=== PATIENT | male | born 1960 | race Caucasian/White ===

== ENCOUNTER 2019-03-31 23:58 | Inpatient (IN) | payer OTHER ==
[~2019-03-31] VITALS: Ht 149.9 cm; Wt 46.3 kg
[~2019-03-31 23:58] MED LIST: APAP/HYDROCODON1 T13 PO; FLO4 PO
[2019-04-01 01:07] LABS: BASOPHIL % 0.2 % (0-2); RED CELL DISTRIBUTION WIDTH 18.1 % (11.5-14.5)
[2019-04-01 01:16] LABS: CALCIUM 8.5 mg/dL (8.5-10.1); CARBON DIOXIDE 30.8 mmol/L (21-32); CHLORIDE SERUM 104 mmol/L (98-107); GFR1 > 60 mL/min; GLUCOSE SERUM 111 mg/dL (74-106); POTASSIUM SERUM 3.9 mmol/L (3.5-5.1); SODIUM SERUM 141 mmol/L (136-145)
[2019-04-01 01:19] LABS: PLATELET COUNT 44 x10^3mcL (130-400)
[2019-04-01 01:20] LABS: ALKALINE PHOSPHATASE 100 U/L (46-116); ALT/SGPT 36 U/L (16-63); AST/SGOT 43 U/L (15-37); BILIRUBIN TOTAL 0.99 mg/dL (0.20-1.00); LIPASE 343 IU/L (73-393); TOTAL PROTEIN, SERUM 7.7 g/dL (6.4-8.2)
[2019-04-01 01:24] LABS: ALBUMIN 2.9 g/dL (3.4-5.0)
[2019-04-01 02:20] LABS: UA SPECIFIC GRAVITY 1.025 (1.005-1.035); microscopic required? YES; urine erythrocyte 3+ (NEGATIVE)
[2019-04-01 04:26] LABS: CHOLESTEROL/HDL RATIO 2.4
[2019-04-01 05:17] VITALS: BP 146/75
[2019-04-01 07:13] LABS: CALCIUM 8.1 mg/dL (8.5-10.1); CARBON DIOXIDE 26.1 mmol/L (21-32); CHLORIDE SERUM 105 mmol/L (98-107); CREATININE SERUM 0.9 mg/dL (0.7-1.3); GFR1 > 60 mL/min; GLUCOSE SERUM 112 mg/dL (74-106); MAGNESIUM 1.7 mg/dL (1.8-2.4); PHOSPHOROUS 4.1 mg/dL (2.5-4.9); POTASSIUM SERUM 3.8 mmol/L (3.5-5.1); SODIUM SERUM 139 mmol/L (136-145)
[2019-04-01 08:09] LABS: BASOPHIL % 0.3 % (0-2)
[2019-04-01 08:11] LABS: RED CELL DISTRIBUTION WIDTH 17.8 % (11.5-14.5)
[2019-04-01 08:15] LABS: PLATELET COUNT 31 x10^3mcL (130-400)
[2019-04-01 09:08] VITALS: BP 129/68
[2019-04-01 11:50] VITALS: BP 134/62
[2019-04-01 16:21] VITALS: BP 113/68
[2019-04-01 21:10] VITALS: BP 121/65
[2019-04-02 05:53] VITALS: BP 104/58
[2019-04-02 06:46] LABS: BASOPHIL % 0.2 % (0-2)
[2019-04-02 07:28] LABS: ALKALINE PHOSPHATASE 67 U/L (46-116); ALT/SGPT 27 U/L (16-63); AST/SGOT 25 U/L (15-37); BILIRUBIN TOTAL 0.91 mg/dL (0.20-1.00); CALCIUM 7.8 mg/dL (8.5-10.1); CARBON DIOXIDE 22.7 mmol/L (21-32); CHLORIDE SERUM 104 mmol/L (98-107); CREATININE SERUM 0.9 mg/dL (0.7-1.3); GFR1 > 60 mL/min; GLUCOSE SERUM 115 mg/dL (74-106); MAGNESIUM 2.1 mg/dL (1.8-2.4); PHOSPHOROUS 3.7 mg/dL (2.5-4.9); POTASSIUM SERUM 4.2 mmol/L (3.5-5.1); SODIUM SERUM 135 mmol/L (136-145)
[2019-04-02 07:31] LABS: ALBUMIN 2.1 g/dL (3.4-5.0)
[2019-04-02 07:45] LABS: RED CELL DISTRIBUTION WIDTH 18.3 % (11.5-14.5)
[2019-04-02 08:44] VITALS: BP 146/73
[2019-04-02 10:07] LABS: PLATELET COUNT 21 x10^3mcL (130-400)
[2019-04-02 12:29] VITALS: BP 128/62
[2019-04-02 17:42] VITALS: BP 133/63
[2019-04-02 20:18] VITALS: BP 129/60
[2019-04-03 05:21] VITALS: BP 143/66
[2019-04-03 06:35] LABS: BASOPHIL % 0.2 % (0-2)
[2019-04-03 06:55] LABS: CALCIUM 7.7 mg/dL (8.5-10.1); CARBON DIOXIDE 23.9 mmol/L (21-32); CHLORIDE SERUM 104 mmol/L (98-107); CREATININE SERUM 0.7 mg/dL (0.7-1.3); GFR1 > 60 mL/min; GLUCOSE SERUM 80 mg/dL (74-106); MAGNESIUM 1.7 mg/dL (1.8-2.4); POTASSIUM SERUM 3.9 mmol/L (3.5-5.1); SODIUM SERUM 135 mmol/L (136-145)
[2019-04-03 08:36] VITALS: BP 125/99
[2019-04-03 09:01] LABS: RED CELL DISTRIBUTION WIDTH 18.6 % (11.5-14.5)
[2019-04-03 09:06] LABS: PLATELET COUNT 25 x10^3mcL (130-400)
[2019-04-03 11:47] VITALS: BP 120/87
[2019-04-03 16:30] VITALS: BP 150/85
[2019-04-03 19:12] VITALS: BP 135/67
[2019-04-04 05:12] VITALS: BP 122/69
[2019-04-04 06:02] LABS: CALCIUM 7.7 mg/dL (8.5-10.1); CARBON DIOXIDE 25.1 mmol/L (21-32); CHLORIDE SERUM 107 mmol/L (98-107); CREATININE SERUM 0.8 mg/dL (0.7-1.3); GFR1 > 60 mL/min; GLUCOSE SERUM 99 mg/dL (74-106); POTASSIUM SERUM 3.9 mmol/L (3.5-5.1); SODIUM SERUM 138 mmol/L (136-145)
[2019-04-04 06:12] LABS: BASOPHIL % 0.2 % (0-2)
[2019-04-04 08:09] VITALS: BP 151/81
[2019-04-04 08:44] LABS: RED CELL DISTRIBUTION WIDTH 18.2 % (11.5-14.5)
[2019-04-04 08:47] LABS: PLATELET COUNT 51 x10^3mcL (130-400)
[2019-04-04 12:12] VITALS: BP 151/73
[2019-04-04 16:25] VITALS: BP 139/76
[2019-04-04 20:55] VITALS: BP 145/69
[2019-04-05 05:57] VITALS: BP 138/76
[2019-04-05 07:32] LABS: RED CELL DISTRIBUTION WIDTH 18.6 % (11.5-14.5)
[2019-04-05 07:35] LABS: PLATELET COUNT 41 x10^3mcL (130-400)
[2019-04-05 08:20] LABS: MONOCYTE 10 % (0-7); SEGMENTED NEUTROPHILS 73 % (37-75); rbc morphology (normal/abnorm) ABNORMAL (NORMAL)
[2019-04-05 08:50] VITALS: BP 150/73
[2019-04-05 09:18] LABS: CALCIUM 7.8 mg/dL (8.5-10.1); CHLORIDE SERUM 106 mmol/L (98-107); CREATININE SERUM 0.7 mg/dL (0.7-1.3); GFR1 > 60 mL/min; GLUCOSE SERUM 87 mg/dL (74-106); POTASSIUM SERUM 4.1 mmol/L (3.5-5.1); SODIUM SERUM 138 mmol/L (136-145)
[2019-04-05 12:51] VITALS: BP 115/90
[2019-04-05 16:41] VITALS: BP 125/72
[2019-04-05 20:24] VITALS: BP 150/79
[2019-04-06 06:43] VITALS: BP 126/79
[2019-04-06 06:57] LABS: CALCIUM 8.2 mg/dL (8.5-10.1); CARBON DIOXIDE 23.5 mmol/L (21-32); CHLORIDE SERUM 106 mmol/L (98-107); CREATININE SERUM 0.6 mg/dL (0.7-1.3); GFR1 > 60 mL/min; GLUCOSE SERUM 86 mg/dL (74-106); POTASSIUM SERUM 3.8 mmol/L (3.5-5.1); SODIUM SERUM 138 mmol/L (136-145)
[2019-04-06 06:59] LABS: RED CELL DISTRIBUTION WIDTH 18.7 % (11.5-14.5)
[2019-04-06 09:26] VITALS: BP 139/73
[2019-04-06 10:42] LABS: MONOCYTE 10 % (0-7); SEGMENTED NEUTROPHILS 70 % (37-75)
[2019-04-06 10:45] LABS: PLATELET COUNT 29 x10^3mcL (130-400); rbc morphology (normal/abnorm) NORMAL (NORMAL)
[2019-04-06 12:05] VITALS: BP 166/87
[2019-04-06 18:05] VITALS: BP 158/74
[2019-04-06 21:24] VITALS: BP 142/76
[2019-04-07 05:35] VITALS: BP 107/66
[2019-04-07 07:17] VITALS: Ht 149.9 cm; Wt 46.3 kg
[2019-04-07 08:27] VITALS: BP 169/89
[2019-04-07 12:35] VITALS: BP 144/75
[2019-04-07 16:50] VITALS: BP 144/66
[2019-04-07 21:14] VITALS: BP 158/79
[2019-04-08 05:44] VITALS: BP 134/67
[2019-04-08 06:27] LABS: CALCIUM 7.6 mg/dL (8.5-10.1); CARBON DIOXIDE 25.2 mmol/L (21-32); CHLORIDE SERUM 108 mmol/L (98-107); CREATININE SERUM 0.7 mg/dL (0.7-1.3); GFR1 > 60 mL/min; GLUCOSE SERUM 87 mg/dL (74-106); POTASSIUM SERUM 3.6 mmol/L (3.5-5.1); SODIUM SERUM 140 mmol/L (136-145)
[2019-04-08 08:02] VITALS: BP 138/70
[2019-04-08 10:02] LABS: RED CELL DISTRIBUTION WIDTH 18.6 % (11.5-14.5)
[2019-04-08 11:57] LABS: BAND NEUTROPHIL 0 % (0-10); BASOPHIL 0 % (0-2); MONOCYTE 7 % (0-7); SEGMENTED NEUTROPHILS 75 % (37-75)
[2019-04-08 11:58] LABS: PLATELET MORPHOLOGY PLATELETS DECREASED; ovalocyte/elliptocyte 1+; rbc morphology (normal/abnorm) ABNORMAL (NORMAL); tear drop cell (dacryocyte) 1+
[2019-04-08 12:13] VITALS: BP 156/88
[2019-04-08 12:31] LABS: PLATELET COUNT 58 x10^3mcL (130-400)
[2019-04-08 16:12] VITALS: BP 140/77
[2019-04-08 20:42] VITALS: BP 146/84
[2019-04-09 06:04] VITALS: BP 130/62
[2019-04-09 06:32] LABS: CALCIUM 7.7 mg/dL (8.5-10.1); CARBON DIOXIDE 26.3 mmol/L (21-32); CHLORIDE SERUM 106 mmol/L (98-107); CREATININE SERUM 0.8 mg/dL (0.7-1.3); GFR1 > 60 mL/min; GLUCOSE SERUM 132 mg/dL (74-106); POTASSIUM SERUM 4.2 mmol/L (3.5-5.1); SODIUM SERUM 138 mmol/L (136-145)
[2019-04-09 06:43] LABS: BASOPHIL % 0.5 % (0-2)
[2019-04-09 08:21] VITALS: BP 108/64
[2019-04-09 11:09] LABS: PLATELET COUNT 15 x10^3mcL (130-400)
[2019-04-09 11:42] VITALS: BP 140/78
[2019-04-09 16:21] VITALS: BP 130/60
[2019-04-09 20:25] VITALS: BP 136/74
[2019-04-10 05:50] VITALS: BP 129/66
[2019-04-10 08:34] LABS: CALCIUM 7.6 mg/dL (8.5-10.1); CARBON DIOXIDE 29.6 mmol/L (21-32); CREATININE SERUM 0.7 mg/dL (0.7-1.3); GFR1 > 60 mL/min; GLUCOSE SERUM 107 mg/dL (74-106)
[2019-04-10 08:57] LABS: RED CELL DISTRIBUTION WIDTH 17.9 % (11.5-14.5)
[2019-04-10 09:16] LABS: CHLORIDE SERUM 106 mmol/L (98-107); POTASSIUM SERUM 4.3 mmol/L (3.5-5.1); SODIUM SERUM 138 mmol/L (136-145)
[2019-04-10 09:32] VITALS: BP 132/69
[2019-04-10 12:24] LABS: MONOCYTE 9 % (0-7); SEGMENTED NEUTROPHILS 68 % (37-75)
[2019-04-10 12:25] LABS: rbc morphology (normal/abnorm) ABNORMAL (NORMAL)
[2019-04-10] MEDS ORDERED: PROPRANOLOL HCL10 MG PO (12:26)
[2019-04-10] MEDS ORDERED: LACTULOSE10 GM/152 PO (12:26)
[2019-04-10 12:47] VITALS: BP 144/74
[2019-04-10 12:55] LABS: PLATELET COUNT 14 x10^3mcL (130-400)
[2019-04-10 13:07] VITALS: BP 144/74
== END 2019-04-10 16:23 | disposition home or self-care (01) | DRG 463 ==
LOC: ED 23:58 → MU 04-01 03:09
PROVIDERS: Family Medicine; General Practice; Internal Medicine Gastroenterology; Student in an Organized Health Care Education/Training Program; ADMIT Internal Medicine
PROC: 30233R1 Transfusion of Nonautologous Platelets into Peripheral Vein, Percutaneous Approach (ICD-10-PCS; 2019-04-02)
PROC: 0T9030Z Drainage of Right Kidney with Drainage Device, Percutaneous Approach (ICD-10-PCS; 2019-04-03)
PROC: 06L38CZ Occlusion of Esophageal Vein with Extraluminal Device, Via Natural or Artificial Opening Endoscopic (ICD-10-PCS; principal; 2019-04-08 09:00)
PROC: 0DJD8ZZ Inspection of Lower Intestinal Tract, Via Natural or Artificial Opening Endoscopic (ICD-10-PCS; 2019-04-08 09:00)
DX: N12 Tubulo-interstitial nephritis, not specified as acute or chronic (principal); E43 Unspecified severe protein-calorie malnutrition; D69.6 Thrombocytopenia, unspecified; K76.6 Portal hypertension; I85.10 Secondary esophageal varices without bleeding; L03.115 Cellulitis of right lower limb; J44.9 Chronic obstructive pulmonary disease, unspecified; Z60.2 Problems related to living alone; R74.0 Nonspecific elevation of levels of transaminase and lactic acid dehydrogenase [LDH]; K64.8 Other hemorrhoids; Q78.0 Osteogenesis imperfecta; E86.0 Dehydration; Z93.6 Other artificial openings of urinary tract status; K52.9 Noninfective gastroenteritis and colitis, unspecified; B18.2 Chronic viral hepatitis C; Z68.20 Body mass index [BMI] 20.0-20.9, adult; Z87.442 Personal history of urinary calculi; Z90.49 Acquired absence of other specified parts of digestive tract; Z79.899 Other long term (current) drug therapy
CPT/HCPCS: 43235; 45378; 50430; 83880; 87046; 87046-59; 90658; 90732; 97116-GP; G0378; J0696; J1200; J1610; J1956; J2250; J2270; J2310; J2354; J2405; J2916; J3010; J3475; J3490; J7030; J7040; J7060; P9035; Q0092; Q9967